=== PATIENT | male | born 2000 | race Caucasian/White ===

== ENCOUNTER 2024-09-06 21:23 | Emergency (ER) | payer OTHER, SELFPAY ==
--- OUTSIDE RECORDS SUMMARY | 2024-09-06 21:25 | XMS_ITS | Encounter Summary ---
[facility] Address [address] [address] Care Team Providers Care Traffic Signal Technician Name Role Phone Bushra Mckeon PA-C Primary Care Provider [phone] Encounter Details Date Type Department Care Team (Late st Contact Info) Description 11/13/2013 Correspondence None No Primary/Referring, Phy DME INSTRUCTION DELIVERY Social History Tobacco Use Types Packs/Day Years Used Date Smoking Tobacco: Never Smokeless Tobacco: Never Comments:both parents smokin g again (not in house) Alcohol Use Standard Drinks/Week Comments No 0 (1 standard drink = 0.6 oz pur e alcohol) Sex and Gender Information Value Date Recorded Sex Assigned at Not on file Legal Sex Male 6:57 AM CDT Gender Identity Not on file Sexual Orientation Not on file documented as of this encounter Plan of Treatment Not on file documented as of this encounter Visit Diagnoses Not on filedocumented in this encounter Care Teams Traffic Signal Technician Relationship Specialty Start Date End Date Bushra Mckeon, DARRYL [address] [place] [address] PCP - General Physician Surveillance Systems Engineer 10/23/16 documented as of this encounter
--- OUTSIDE RECORDS SUMMARY | 2024-09-06 21:25 | XMS_ITS | Encounter Summary ---
Author Organization [facility] Address [address], [place] [address] Care Team Providers Care News Operations Manager Name Role Phone Bushra Mckeon PA-C Primary Care Provider [phone] Reason for Visit * Reason Comments TOOTHACHE Right lower toothach e Encounter Details Date Type Department Care Team (Late st Contact Info) Description 08/12/2024 2:20 PM INDUSTRIAL RELATIONS WORKER Office Visit [facility] Ur[facility] [address] [address] Lucrecia Schumacher, REPAIR WEAVER, CIVIL ENGINEERING TECHNICIAN [address] [place] [address] Dental abscess (Primary Dx) Social History Tobacco Use Types Packs/Day Years Used Date Smoking Tobacco: Former Smokeless Tobacco: Former Comments:both parents smokin g again (not in house) Alcohol Use Standard Drinks/Week Comments No 0 (1 standard drink = 0.6 oz pur e alcohol) Sex and Gender Information Value Date Recorded Sex Assigned at Not on file Legal Sex Male 6:57 AM CDT Gender Identity Not on file Sexual Orientation Not on file documented as of this encounter Last Filed Vital Signs Vital Sign Reading Time Taken Comments Blood Pressure 131/84 08/12/2024 2:30 PM INDUSTRIAL RELATIONS WORKER Pulse 61 08/12/2024 2:30 PM INDUSTRIAL RELATIONS WORKER Temperature 37 C (98.6 F) 08/12/2024 2:30 PM INDUSTRIAL RELATIONS WORKER Respiratory Rate 16 08/12/2024 2:30 PM INDUSTRIAL RELATIONS WORKER Oxygen Saturation 100% 08/12/2024 2:30 PM INDUSTRIAL RELATIONS WORKER Inhaled Oxygen Concentration - - Weight - - Height - - Body Mass Index - - documented in this encounter Patient Instructions * Patient Instructions* Lucrecia Schumacher APRN, CNP - 08/12/2024 2:20 PM INDUSTRIAL RELATIONS WORKER Please make sure you take your antibiotics fully, even if you are feeling better. Recommend taking them with food such as yogurt. Also recommend taking a probiotic while you are on antibiotics. STRIAL RELATIONS WORKER * Attachments The following attachments cannot be sent through Care Everywhere. * Dental Care: General Info (Uzbek) documented in this encounter Progress Notes * Lucrecia Schumacher APRN, CNP - 08/12/2024 2:20 PM CST SUBJECTIVE: Suhail Singh is a 23 y.o.male who presents to Urgent Care for evaluation of dental pain. Symptoms started a few days ago Swollen on left side Dental pain for the last 3 days Tried ROS: Complete ROS was negative other than what was cited above. OBJECTIVE: Vital Signs: BP 131/84 (BP Location: Left Arm, BP Cuff Size: Regular) Pulse 61 Temp 98.6 ??F (37 ??C) (Oral) Resp 16 SpO2 100% . Physical Exam Vitals and nursing note reviewed. Constitutional: Appearance: Normal appearance. HENT: Mouth/Throat: Dentition: Dental caries and dental abscesses present. Comments: No area of fluctuance noted to drain. Multiple dental caries cracked teeth and missing teeth. Neurological: Mental Status: He is alert. ASSESSMENT: Pt is a 23 y.o.male who presents with dental pain and abscess. Plan noted below discussed at time of visit. PLAN: -medications sent to the pharmacy -return to clinic in emergent signs and symptoms gone over -follow up with dental clinic Diagnosis and Associated Orders ICD-10-CM 1. Dental abscess K04.7 Patient Instructions Please make sure you take your antibiotics fully, even if you are feeling better. Recommend taking them with food such as yogurt. Also recommend taking a probiotic while you are on antibiotics. Lucrecia Schumacher APRN, SUZANNA STRIAL RELATIONS WORKER documented in this encounter Nursing Notes * Cindy Sumner CMA - 08/12/2024 2:20 PM CST Suhail Singh is a 23 y.o.male presents to the Urgent Care for TOOTHACHE (Right lower toothache) . Pain/Trauma location: right lower toothache has been like this and swelling now inside on jawline. Left message for emergency dental. Symptoms began: 3 day(s) ago. Symptoms are: gradually worsening. Pain Scale: 10/10 Pain Quality: throbbing, pressure Alleviating factors: cold but still hurts Aggravating factors: eating, drinking, talking . OTC remedies tried: ice oral gel, tylenol, ibuprofen with no relief of symptoms. Patient requests an excuse letter for work/school: No Cindy Sumner CMA 08/12/2024, 2:30 PM STRIAL RELATIONS WORKER documented in this encounter Plan of Treatment Not on file documented as of this encounter Visit Diagnoses Diagnosis Dental abscess- Primary Periapical abscess without sinus documented in this encounter Care Teams News Operations Manager Relationship Specialty Start Date End Date Bushra Mckeon, SAHRAC [address] [place] [id number] PCP - General Physician Church Secretary 10/23/16 documented as of this encounter
--- OUTSIDE RECORDS SUMMARY | 2024-09-06 21:25 | XMS_ITS | Clinical Summary ---
Author Organization [facility] Address [address] [address] Care Team Providers Care Sap Abap Developer Name Role Phone Bushra Mckeon PA-C Primary Care Provider [phone] Source Comments You are receiving this document as you are listed as the primary care provider,follow-up provider, or the patient has been referred to you for consultation.This is in compliance with the Medicare and[facility] EHR Incentive Program,which states Providers who transition their patient to another setting of careor provider of care or refers their patient to another provider of care shouldprovide summary care record for each transition of care or referral. [employer] Allergies Active Allergy Reactions Criticality Noted Date Comments Trazodone Other, see comments 10/22/2013 Facial swelling Medications naproxen sodium (ALEVE) 220 MG tablet Take 1 Tablet (220 mg) by mouth two times daily as needed. Active ibuprofen (AKA MOTRIN) 800 MG tablet Take 1 Tablet (800 mg) by mouth every 8 hours as needed. Active fluticasone (FLOVENT HFA) 110 MCG/ACT inhalerIndication s:Mild persistent asthma, uncomplicated (HRC) Inhale 1-2 Puffs by mouth two times a day. 12 g 6 09/02/19 15 Active Additional Information Patient not taking.Reported on 08/12/2024 loratadine (ALAVERT) 10 MG tablet Take 1 Tab by mouth daily. 30 Tab 3 09/16/19 15 Active Additional Information Patient not taking.Reported on 11/02/2018 fluticasone (FLONASE) 50 MCG/ACT nasal solution Apply or instill 2 Sprays into both nostrils daily at bedtime. 16 g 3 09/16/19 15 Active Additional Information Patient not taking.Reported on 08/12/2024 ALBUterol sulfate HFA 108 (90 Base) MCG/ACT inhalerIndication s:Asthma with acute exacerbation, unspecified asthma severity, unspecified whether persistent (HRC) Inhale 1-2 Puffs every 4 hours as needed for Wheezing. 1 Inhaler 11 11/03/19 19 Active acetaminophen (TYLENOL) 325 MG tablet Take 1-2 Tablets (325-650 mg) by mouth every 4 hours as needed for Pain. Active amoxicillin-clavu lanate (AUGMENTIN) 875-125 mg per tablet Take 1 Tablet by mouth two times a day for 10 days. Take with food or milk. 20 Tablet 08/12/19 25 025 Active Problems Problem Noted Date Diagnosed Date Depression with anxiety 07/01/2014 [place]Schlatter's disease 12/28/2013 Mononucleosis 11/06/2013 Allergic rhinitis 03/12/2007 Mild persistent asthma 10/19/2003 Overview (01/10/2005): last steroid 03/24 Encounters Date Type Department Care Team Description 09/06/2024 Nurse Triage Careline [address] [place] [address] Unassigned, Provider Dental Pain; FACIAL SWELLING--ED 08/12/2024 2:20 PM FLOOR LAYER APPRENTICE Office Visit [facility] Ur[facility] [address] [address] Lucrecia Schumacher, UMBRELLA FINISHER, INSURANCE EXAMINER Dental abscess (Primary Dx) from Last 3 Months Immunizations Immunization Administration Dates Next Due DTaP 03/16/2004, 1,04/09/2000,1999,1999 Flu Vac (3+ yrs) 04/20/2009, 8,05/31/2007,2005,05/02/2005 H1n1 Laiv Medimmune 2-49 Yr (Intranasal) 06/22/2009 Hib/HBV 05/13/2001,01/20/2000,1999 IPV (Polio) 03/16/2004, 0,01/20/2000,1999 Influenza LAIV (Nasal, 2-49 yrs) 05/04/2014 Influenza LAIV3 2-49 years (Flumist) 03/27/2012, 05/09/2011,06/06/2010 MCV4 (Menactra) 03/03/2011 MMR 03/16/2004,05/13/2001 Pneumococcal 7, PED 05/13/2001, 1,04/09/2000,1999 Tdap 03/03/2011 Varicella 06/04/2008,05/13/2001 Family History Medical History Relation Name Comments Asthma Mother Thyroid Disorder Other Asthma Sister Blindness Negative Family History Coronary Artery Disease Negative Family History Deafness Negative Family History Diabetes, Type II Negative Family History Hyperlipidemia Negative Family History Hypertension Negative Family History Relation Name Status Comments Mother Other Sister Social History Tobacco Use Types Packs/Day Years [...] on file Sexual Orientation Not on file Last Filed Vital Signs Vital Sign Reading Time Taken Comments Blood Pressure 131/84 08/12/2024 2:30 PM FLOOR LAYER APPRENTICE Pulse 61 08/12/2024 2:30 PM FLOOR LAYER APPRENTICE Temperature 37 C (98.6 F) 08/12/2024 2:30 PM FLOOR LAYER APPRENTICE Respiratory Rate 16 08/12/2024 2:30 PM FLOOR LAYER APPRENTICE Oxygen Saturation 100% 08/12/2024 2:30 PM FLOOR LAYER APPRENTICE Inhaled Oxygen Concentration - - Weight 58.1 kg (128 lb) 11/10/2020 4:51 PM CDT Height 180.3 cm (5' 11) 11/02/2018 6:10 PM CDT Body Mass Index 17.85 11/02/2018 6:10 PM CDT Plan of Treatment Health Maintenance Due Date Last Done Comments Hep C Screening (Preventive Services) 1999 Asthma ACT (score of 20 or higher) 2003 HPV Vaccine (1 - Male 3-dose series) 09/19/2014 HIV Screening (Preventive Services) 2015 Adult Preventive Visit 09/19/2017 4, 03/27/2012, 03/03/2011, Additional history exists Pneumococcal (1 of 2 - PCV) 09/19/201804/23, 07/30/2000, 04/09/2000, Additional history exists DTaP/Tdap/Td (7 - Tdap) 03/03/2021 03/03/20 11, 03/16/2004, 05/13/2001, Additional history exists COVID-19 Vaccine ( - 2023- season) 2024 Influenza (#1) 2024 05/04/2014, 11/2011, 05/09/2011, Additional history exists Zoster/Shingles (1 of 2) 09/19/2049 HepB Completed 05/13/2001, 12/23, 1999 Hib Completed 05/13/2001, 12/23, 1999 IPV (Polio) Completed 03/16/2004, 03/23, 01/20/2000, Additional history exists MCV4 Aged Out 03/03/2011 No longer eligi ble based on patient's age to complete this topic Varicella Completed 05/13/2011, 05/23, 05/13/2001 HepA Aged Out No longer eligi ble based on patient's age to complete this topic Meningococcal B Aged Out No longer el igible based on patient's age to complete this topic Advance Directives * No Code Status (Latest Code Status on File) Date Activated Date Inactivated Comments 04/14/2005 2:24 PM 04/14/2005 2:24 PM Care Teams Sap Abap Developer Relationship Specialty Start Date End Date Bushra Mckeon, PAPollyC [address] [place] [address] PCP - General Physician Steward/Stewardess Room 10/23/16
--- OUTSIDE RECORDS SUMMARY | 2024-09-06 21:25 | XMS_ITS | Encounter Summary ---
Author Organization [facility] Address [address], [place] [address] Care Team Providers Care Motor Vehicle Dispatcher Name Role Phone Bushra Mckeon PA-C Primary Care Provider [phone] Encounter Details Date Type Department Care Team (Late st Contact Info) Description 12/05/2013 Correspondence None No Primary/Referring, Phy HME E[employer]MENT [employer] BURNER MACHINE TICKET Social History Tobacco Use Types Packs/Day Years [...] on filedocumented in this encounter Care Teams Motor Vehicle Dispatcher Relationship Specialty Start Date End Date Bushra Mckeon, DARRYL [address] [place] [address] PCP - General Physician Aircraft Loadmaster Superintendent 10/23/16 documented as of this encounter
--- OUTSIDE RECORDS SUMMARY | 2024-09-06 21:25 | XMS_ITS | Encounter Summary ---
[facility] Organization [facility] Address [address] [address] Care Team Providers Care Night Shift Name Role Phone Bushra Mckeon PA-C Primary Care Provider [phone] Encounter Details Date Type Department Care Team (Late st Contact Info) Description 07/16/2013 Emergency Room External to [facility] SINUS CONGESTION Social History Tobacco Use Types Packs/Day Years Used Date Smoking Tobacco: Never Comments:mom quit smoking in 2009 Alcohol Use Standard Drinks/Week Comments No 0 (1 standard drink = 0.6 oz pur e alcohol) Sex and Gender Information Value Date Recorded Sex Assigned at Not on file Legal Sex Male 6:57 AM CDT Gender Identity Not on file Sexual Orientation Not on file documented as of this encounter Progress Notes * [facility] PROVIDER - 07/16/2013 12:00 AM CST ADVANCED documented in this encounter Plan of Treatment Not on file documented as of this encounter Visit Diagnoses Not on filedocumented in this encounter Care Teams Night Shift Relationship Specialty Start Date End Date Bushra Mckeon PA-C [address] [place] [address] PCP - General Physician Tools And Parts Attendant 10/23/16 documented as of this encounter
--- OUTSIDE RECORDS SUMMARY | 2024-09-06 21:25 | XMS_ITS | Encounter Summary ---
Author Organization [facility] Address [address] [place] [address] Care Team Providers Care Principal Technical Architect Name Role Phone Bushra Mckeon PA-C Primary Care Provider [phone] Reason for Visit * Reason Comments Dental Pain FACIAL SWELLING--ED Encounter Details Date Type Department Care Team ([facility] st Contact Info) Description 09/06/2024 Nurse Triage Careline [address] [facility] [place], [place] [id number] Unassigned, Provider [address] [place] [address] Dental Pain; FACIAL SWELLING--ED Social History Tobacco Use Types Packs/Day Years [...] on file documented as of this encounter Nursing Notes * Anh Gallagher RN - 09/06/2024 11:38 AM CST Situation/Background (brief explanation of current symptoms/situation): has swelling in face on theright side. Feels upper jaw swelling today. Needs tooth extractions. Has mouth pain. Has not seen adentist in the past year. Reviewed pertinent medical history (as relates to the call): Yes Reviewed pertinent medications (as relates to the call): antibiotics about 2 weeks ago. Anh Gallagher RN 09/06/2024, 11:41 AM Reason for Disposition ??? Toothache Answer Assessment - Initial Assessment Questions 1. ONSET: When did the swelling start? (e.g., minutes, hours, days) July 2. LOCATION: What part of the face is swollen? (e.g., cheek, entire face, jaw joint area, under jaw) Right upper teeth area 3. SEVERITY: How swollen is it? - LOCALIZED: Localized; small area of puffy or swollen skin. - MILD: Face looks or feels puffy. - MODERATE: More than puffy, visible swelling. interferes with normal activities (e.g., work or school); decreased range of movement. - SEVERE: Entire face is swollen; eyelids nearly swollen shut. localized 4. ITCHING: Is there any itching? If Yes, ask: How much? (Scale 1-10; mild, moderate or severe) no 5. PAIN: Is the swelling painful to touch? If Yes, ask: How painful is it? (Scale 0-10; mild, moderate or severe) - NONE (0): No pain. - MILD (1-3): Doesn't interfere with normal activities. - MODERATE (4-7): Interferes with normal activities or awakens from sleep. - SEVERE (8-10): Excruciating pain, unable to do any normal activities. 10/10 pain, last took 1 ibuprofen and 2 tylenol 3 hours ago 6. FEVER: Do you have a fever? If Yes, ask: What is it, how was it measured, and when did it start? no 7. CAUSE: What do you think is causing the face swelling? teeth 8.NEW MEDICINES: Have there been any new medicines started recently? no 9. RECURRENT SYMPTOM: Have you had face swelling before? If Yes, ask: When was the last time? What happened that time? Yes dental infection 10. OTHER SYMPTOMS: Do you have any other symptoms? (e.g., leg swelling, toothache) Upper right tooth pain 11. : Is there any chance you are ? When was your last menstrual period? no Protocols used: Face [id number] CHANGE TECHNICIAN * Ana Gray - 09/06/2024 11:36 AM CST Verified patient using 3 identifiers: Yes Caller reports the following red flag symptoms: recently treated for dental abscess. Last night symptoms returned; severe pain in mouth and when swallowing, swelling of right side of face. Plan: Transferred directly to a CareLine RN. CHANGE TECHNICIAN documented in this encounter Plan of Treatment Not on file documented as of this encounter Visit Diagnoses Not on filedocumented in this encounter Care Teams Principal Technical Architect Relationship Specialty Start Date End Date Bushra Mckeon, PAPollyC [address] [place] [id number] PCP - General Physician Ride Mechanic 10/23/16 documented as of this encounter
--- OUTSIDE RECORDS SUMMARY | 2024-09-06 21:25 | XMS_ITS | Encounter Summary ---
[facility] Address [address], [place] [address] Care Team Providers Care Electronic Device Monitor Name Role Phone Bushra Mckeon PA-C Primary Care Provider [phone] [phone] Encounter Details Date Type Department Care Team (Latest Contact Info) Description 01/08/2000 Orders Only Raghav Evangelista MD [address] [place] [address] Social History Tobacco Use Types Packs/Day Years Used Date Smoking Tobacco: Never Assessed Sex and Gender Information Value Date Recorded Sex Assigned at Not on file Legal Sex Male 6:57 AM CDT Gender Identity Not on file Sexual Orientation Not on file documented as of this encounter Plan of Treatment Not on file documented as of this encounter Visit Diagnoses Not on filedocumented in this encounter Care Teams Electronic Device Monitor Relationship Specialty Start Date End Date Bushra Mckeon PA-C [address] [place] [address] PCP - General Physician Knife Sharpener 10/23/16 documented as of this encounter
[2024-09-06 21:29] VITALS: BP 128/75; PULSE 63; RESP 16; TEMP 36.7; O2SAT 98; BMI 17.6
--- NOTE | 2024-09-06 21:32 | ED.GENADULT ---
HPI - General Adult General Chief complaint: Unspecified Complaint, Adult Stated complaint: Face swelling Time Seen by Provider: 09/06/24 21:25 History of Present Illness HPI narrative: 3d of worsening RL jaw pain that is swelling. states has a bad tooth in lower R side. hx of this in august 12, rx amoxicillin but this came back. no airway compromise. is taking ibu and tylenol 23-year-old man presenting to the emergency department with concern of facial swelling and dental abscess. Was seen at this facility in September of 2023 with similar concern. Describes having dental problems in 6 grade approximately. Over the last 3 days has had increasing pain in the right lower jaw and now with swelling. Did receive a prescription on August 12 looks like for Augmentin. S is for the same area. Has not had chills or drainage. Ibuprofen acetaminophen just does not working. He knows he needs a lot of dental work with many teeth ultimately needing to be pulled. Has also been trying ice packs. Related Data Allergies Allergy/AdvReac Type Severity Reaction Status Date / Time trazodone Allergy Severe Verified 10/03/23 14:05 Review of Systems Status of ROS: Reports: 6 or more systems reviewed and unremarkable except as noted in History and below PFSH PFS Social History Smoking Status: Never smoker Exam Narrative: Exam Narrative: Pleasant. Home. Breathing easily without stridor. Casually carefully groomed. Neck is supple without lymphadenopathy. There is apparent swelling along the right anterior mandible. Tender here as well. Oropharyngeal exam shows some buccal swelling of the gums in this area but I do not appreciate fluctuance head associated with than easily drainable abscess. All teeth with serious erosions/decay. Many teeth are broken off at or eroded to the gumline. Const: Vital Signs, click to edit/add: Vital Signs - 24 hr 09/06/24 21:29 Temperature 98.1 F Pulse Rate [Pulse Oximeter] 63 Respiratory Rate 16 Blood Pressure [Le ft Upper Arm] 128/75 Pulse Oximetry 98 Oxygen Delivery Me thod Room Air Documenting provider has reviewed patient's vital signs: yes Course Vital Signs Vital signs: Initial Vital Signs Temperature 98.1 F 09/06/24 21:29 Temperature Source Temporal Artery Scan 09/06/24 21:29 Pulse Rate 63 09/06/24 21:29 Respiratory Rate 16 02/15/25 21:29 Blood Pressure 128/75 09/06/24 21:29 Blood Pressure Mean 92 09/06/24 21:29 Blood Pressure Position Sitting 09/06/24 21:29 Pulse Oximetry 98 09/06/24 21:29 Oxygen Delivery Method Room Air 09/06/24 21:29 Vital Signs Temperature 98.1 F 09/06/24 21:29 Pulse Rate 63 09/06/24 21:29 Respiratory Rate 16 09/06/24 21:29 Blood Pressure 128/75 09/06/24 21:29 Pulse Oximetry 98 09/06/24 21:29 Oxygen Delivery Method Room Air 09/06/24 21: Temperature 98.1 F 09/06/24 21:29 Pulse Rate 63 09/06/24 21: Respiratory Rate 16 09/06/24 21:29 Blood Pressure 128/75 09/06/24 21:29 Pulse Oximetry 98 09/06/24 21:29 Oxygen Delivery Method Room Air 09/06/24 21:29 Medications Administered Medications: Discontinued Medications Generic Name Dose Route Start Last Admin Trade Name Chongq PRN Reason Stop Dose Admin Bupivacaine HCl 5 ml 09/06/24 21:40 09/06/24 22:24 Bupivacaine 0.25% 30 Ml INJECTION 09/06/24 21:41 5 ml ONCE ONE Administration Medical Decision Making MDM Narrative Medical decision making narrative: I would presume dental abscess/infection and related swelling. Do not think this is drainable at this time. At minimum would offer antibiotics again. Will offer dental clinic list. I did offer injection for temporary anesthesia and he would very much like to have that.. This will be done with bupivacaine. I returned and placed 1 mL of 0.5% bupivacaine in a right sided lingual block. On reassessment this did result in some improvement but still with some discomfort. Follow this up with a buccal block in the right jaw proximal to the area of swelling. Further improvement I think in anesthesia. See patient discharge plan for further discussion See handout for dental care clinic options. Try to get seen within a week if possible. Prescribing amoxicillin, Percocet from [facility]. Can take up to 800 mg of ibuprofen or up to 1000 mg of acetaminophen per dose. These can be combined. Remember that each tablet of Percocet contains 325 mg of acetaminophen. Be seen sooner for marked increase in or uncontrolled pain, fever. Medical Records Medical records reviewed: Yes I reviewed the patient's medical records Discharge Plan Discharge Clinical Impression: Dental infection, Pain, dental Patient Disposition: Home, Self-Care Condition: Improved Additional Instructions: See handout for dental care clinic options. Try to get seen within a week if possible. Prescribing amoxicillin, Percocet from [facility]. Can take up to 800 mg of ibuprofen or up to 1000 mg of acetaminophen per dose. These can be combined. Remember that each tablet of Percocet contains 325 mg of acetaminophen. Be seen sooner for marked increase in or uncontrolled pain, fever. Follow Up/Referrals: Provider,Not a Local [Primary Care Provider] - Stand Alone Forms: [employer] Info Instructions
--- OUTSIDE RECORDS SUMMARY | 2024-09-06 21:48 | XMS_ITS | Encounter Summary ---
Author Organization [facility] Address [address], [place] [address] Care Team Providers Care Advertising Associate Name Role Phone Bushra Mckeon PA-C Primary Care Provider [phone] Encounter Details Date Type Department Care Team [...] on filedocumented in this encounter Care Teams Advertising Associate Relationship Specialty Start Date End Date Bushra Mckeon, DARRYL [address] [place] [phone] PCP - General Physician Fusing Machine Tender 10/23/16 documented as of this encounter
--- OUTSIDE RECORDS SUMMARY | 2024-09-06 21:48 | XMS_ITS | Encounter Summary ---
Author Organization [facility] Address [address] [place] [address] Care Team Providers Care Petroleum Plant Operator Name Role Phone Bushra Mckeon PA-C Primary Care Provider [phone] Reason for Visit * Reason Comments Dental Pain FACIAL SWELLING--ED Encounter Details Date Type Department Care Team ([facility] st Contact Info) Description 09/06/2024 Nurse Triage Careline [address] [facility] [place], [place] [id number] Unassigned, Provider [address] [place] [address] Dental Pain; FACIAL SWELLING--ED Social History Tobacco [...] last menstrual period? no Protocols used: Face [id number] LE GIRL * Ana Gray - 09/06/2024 11:36 AM CST Verified patient using 3 identifiers: Yes Caller reports the following red flag symptoms: recently treated for dental abscess. Last night symptoms returned; severe pain in mouth and when swallowing, swelling of right side of face. Plan: Transferred directly to a CareLine RN. LE GIRL documented in this encounter Plan of Treatment Not on file documented as of this encounter Visit Diagnoses Not on filedocumented in this encounter Care Teams Petroleum Plant Operator Relationship Specialty Start Date End Date Bushra Mckeon, PAPollyC [address] [place] [address] PCP - General Physician Acetylene Cylinder Packing Mixer 10/23/16 documented as of this encounter
--- OUTSIDE RECORDS SUMMARY | 2024-09-06 21:48 | XMS_ITS | Encounter Summary ---
Author Organization [facility] Address [address], [place] [address] Care Team Providers Care Director Of Sales Support Name Role Phone Bushra Mckeon PA-C Primary Care Provider [phone] Encounter Details Date Type Department Care Team (Latest Contact Info) Description 01/08/2000 Orders Only Raghav Evangelista MD [address] [place] [address] Social History Tobacco Use Types Packs/Day Years [...] on filedocumented in this encounter Care Teams Director Of Sales Support Relationship Specialty Start Date End Date Bushra Mckeon PA-C [address] [place] [address] PCP - General Physician Real Time Operator 10/23/16 documented as of this encounter
--- OUTSIDE RECORDS SUMMARY | 2024-09-06 21:48 | XMS_ITS | Clinical Summary ---
Author Organization [facility] Address [address], [place] [address] Care Team Providers Care Stud Beef Cattle Farmer Name Role Phone Bushra Mckeon PA-C Primary Care Provider [phone] Source Comments You are receiving this document as you are listed as the primary care provider,follow-up provider, or the patient has been referred to you for consultation.This is in compliance with the Medicare and[facility] EHR Incentive Program,which states Providers who transition their patient to another setting of careor provider of care or refers their patient to another provider of care shouldprovide summary care record for each transition of care or referral. GameWith Allergies Active Allergy Reactions Criticality Noted Date [...] Date Diagnosed Date Depression with anxiety 07/01/2014 Nutrioso-Schlatter's disease 12/28/2013 Mononucleosis 11/06/2013 Allergic rhinitis 03/12/2007 Mild persistent asthma 10/19/2003 Overview (01/10/2005): last steroid 03/24 Encounters Date Type Department Care Team Description 09/06/2024 Nurse Triage Careline [address] [place] [address] Unassigned, Provider Dental Pain; FACIAL SWELLING--ED 08/12/2024 2:20 PM BUSINESS PROCESS SPECIALIST Office Visit [facility] [address] [address] Lucrecia Schumacher, SPLITTING MACHINE TENDER, LABORATORY ASST Dental abscess (Primary Dx) from Last 3 [...] Comments Blood Pressure 131/84 08/12/2024 2:30 PM BUSINESS PROCESS SPECIALIST Pulse 61 08/12/2024 2:30 PM BUSINESS PROCESS SPECIALIST Temperature 37 C (98.6 F) 08/12/2024 2:30 PM BUSINESS PROCESS SPECIALIST Respiratory Rate 16 08/12/2024 2:30 PM BUSINESS PROCESS SPECIALIST Oxygen Saturation 100% 08/12/2024 2:30 PM BUSINESS PROCESS SPECIALIST Inhaled Oxygen Concentration - - Weight 58.1 [...] 2:24 PM 04/14/2005 2:24 PM Care Teams Stud Beef Cattle Farmer Relationship Specialty Start Date End Date Bushra Mckeon, PAPollyC [address] [place] [address] PCP - General Physician Wood Patternmaker 10/23/16
--- OUTSIDE RECORDS SUMMARY | 2024-09-06 21:48 | XMS_ITS | Encounter Summary ---
Author Organization [facility] Address [address] [address] Care Team Providers Care Shear Operator Name Role Phone Bushra Mckeon PA-C Primary Care Provider [phone] Encounter Details Date Type Department Care Team (Late st Contact Info) Description 12/05/2013 Correspondence None No Primary/Referring, Phy HME EQUIPMENT BIOMASS FACILITATOR TICKET Social History Tobacco Use Types Packs/Day [...] on filedocumented in this encounter Care Teams Shear Operator Relationship Specialty Start Date End Date Bushra Mckeon, DARRYL [address] [place] [address] PCP - General Physician Wad Impregnator 10/23/16 documented as of this encounter
--- OUTSIDE RECORDS SUMMARY | 2024-09-06 21:48 | XMS_ITS | Encounter Summary ---
Author Organization [facility] Address [address], [place] [address] Care Team Providers Care Land Conservation Specialist Name Role Phone Bushra Mckeon PA-C Primary Care Provider [phone] Reason for Visit * Reason Comments TOOTHACHE Right lower toothach e Encounter Details Date Type Department Care Team (Late st Contact Info) Description 08/12/2024 2:20 PM ADMISSION DISCHARGE RN Office Visit [facility] [address] [address] Lucrecia Schumacher, ACCOUNTS PAYABLE SPECIALIST, SUPERVISOR [employer] [address] [place] [address] Dental abscess (Primary Dx) Social History Tobacco [...] Comments Blood Pressure 131/84 08/12/2024 2:30 PM ADMISSION DISCHARGE RN Pulse 61 08/12/2024 2:30 PM ADMISSION DISCHARGE RN Temperature 37 C (98.6 F) 08/12/2024 2:30 PM ADMISSION DISCHARGE RN Respiratory Rate 16 08/12/2024 2:30 PM ADMISSION DISCHARGE RN Oxygen Saturation 100% 08/12/2024 2:30 PM ADMISSION DISCHARGE RN Inhaled Oxygen Concentration - - Weight - - Height - - Body Mass Index - - documented in this encounter Patient Instructions * Patient Instructions* Lucrecia Schumacher APRN, CNP - 08/12/2024 2:20 PM ADMISSION DISCHARGE RN Please make sure you take your antibiotics fully, even if you are feeling better. Recommend taking them with food such as yogurt. Also recommend taking a probiotic while you are on antibiotics. SSION DISCHARGE RN * Attachments The following attachments cannot be sent through Care Everywhere. * Dental Care: General Info (Sinhala) documented in this encounter Progress Notes * [...] are on antibiotics. Lucrecia Schumacher APRN, SUZANNA SSION DISCHARGE RN documented in this encounter Nursing Notes * [...] No Cindy Sumner CMA 08/12/2024, 2:30 PM SSION DISCHARGE RN documented in this encounter Plan of Treatment Not on file documented as of this encounter Visit Diagnoses Diagnosis Dental abscess- Primary Periapical abscess without sinus documented in this encounter Care Teams Land Conservation Specialist Relationship Specialty Start Date End Date Bushra Mckeon, SAHRAC [address] [place] [address] PCP - General Physician Spray Drier Operator Helper 10/23/16 documented as of this encounter
--- OUTSIDE RECORDS SUMMARY | 2024-09-06 21:49 | XMS_ITS | Encounter Summary ---
Author Organization [facility] Address [address], [place] [address] Care Team Providers Care Garnett Machine Operator Helper Name Role Phone Bushra Mckeon PA-C Primary Care Provider [phone] Encounter Details Date Type Department Care Team [...] MARIE PROVIDER - 07/16/2013 12:00 AM CST RMATION ASSISTANT documented in this encounter Plan of Treatment Not on file documented as of this encounter Visit Diagnoses Not on filedocumented in this encounter Care Teams Garnett Machine Operator Helper Relationship Specialty Start Date End Date Bushra Mckeno PA-C [address] [place] [address] PCP - General Physician Shop Router 10/23/16 documented as of this encounter
[2024-09-06] MEDS: BUPIVACAINE 0.25% 30 ML 5 ML INJECTION (22:24)
== END 2024-09-06 22:25 | disposition home or self-care (01) ==
PROVIDERS: Emergency Provider Family Medicine
DX: K04.7 Periapical abscess without sinus (principal)
CPT/HCPCS: 64450; 99283; 99284; J0665